=== PATIENT | female | born 1975 | race Caucasian/White ===

== ENCOUNTER 2017-04-24 21:28 | Emergency (ER) | payer BC ==
[~2017-04-24] VITALS: Ht 172.7 cm; Wt 93.1 kg
[2017-04-25 00:59] VITALS: BP 114/78
== END 2017-04-25 01:11 | disposition home or self-care (01) ==
LOC: EME 21:28
DX: R51 Headache (principal); R00.2 Palpitations; F17.200 Nicotine dependence, unspecified, uncomplicated
CPT/HCPCS: 70450; 99281; 99285